=== PATIENT | female | born 1940 | race Caucasian/White ===

== ENCOUNTER 2016-07-17 14:29 | Outpatient (CLI) | payer MEDICARE, OTHER | END 2016-07-17 14:30 | disposition home or self-care (01) | DX: N30.00 Acute cystitis without hematuria (principal) ==

== ENCOUNTER 2016-08-07 13:55 | Outpatient (CLI) | payer MEDICARE, OTHER | END 2016-08-07 13:56 | disposition home or self-care (01) | DX: Z12.31 Encounter for screening mammogram for malignant neoplasm of breast (principal) ==

== ENCOUNTER 2016-08-07 14:09 | Outpatient (CLI) | payer MEDICARE, OTHER | END 2016-08-07 14:10 | disposition home or self-care (01) | DX: N30.00 Acute cystitis without hematuria (principal) ==

== ENCOUNTER 2016-08-25 08:00 | Outpatient (CLI) | payer MEDICARE, OTHER | END 2016-08-25 08:01 | DX: N30.00 Acute cystitis without hematuria (principal) ==

== ENCOUNTER 2017-01-12 09:41 | Outpatient (CLI) | payer MEDICARE, OTHER ==
--- NOTE | 2017-01-12 13:58 | MRI Report ---
EXAM: MRI CERVICAL SPINE WITHOUT CONTRAST EXAM DATE: 01/12/2017 11:06 AM. CLINICAL HISTORY: CERVICALGIA, RADICULOPATHY, CERVICAL REGION. COMPARISONS: None. TECHNIQUE: Multiplanar, multisequence T1-weighted and fluid-sensitive sequences of the cervical spine without contrast. Other: None. FINDINGS: Neurologic Structures: The visualized posterior fossa structures are unremarkable. No signal abnormal ity in the visualized spinal cord. Alignment: There is straightening of the normal cervical lordosis. There is a 2 mm anterior subluxati on of C3 on C4, C7 on T1, T1 and T2, and T2 on T3. There is 3 mm anterior subluxation of C4 on C5. Th ere is 2-3 mm of posterior subluxation of C5 on C6. Bone Marrow: Mild endplate degenerative changes with jvlo-zi-tslvgjiv loss of disk height and disk de siccation. No acute fracture. No abnormal marrow replacing lesion. No definite abnormal marrow edema. Interspace Levels/Facets: C1-C2: Mild arthritic changes with small posterior pannus without significant spinal canal stenosis o r neural foraminal narrowing. C2-C3: Slight posterior disk osteophyte complex with slight effacement of the ventral thecal sac. Rig ht arthritic facet disease with minimal right neural foraminal narrowing. C3-C4: Small posterior disk osteophyte complex with slight effacement of the ventral thecal sac. Bila teral uncovertebral osteophyte and arthritic facet disease with mild right and ngia-bq-bvnatbaw left neural foraminal narrowing. C4-C5: Small posterior disk osteophyte complex producing mild spinal canal stenosis. Bilateral uncove rtebral osteophyte and arthritic facet disease with severe bilateral neural foraminal narrowing. C5-C6: Small to moderate posterior disk osteophyte complex as well as ligamentum flavum thickening pr oducing moderate spinal canal stenosis. Bilateral uncovertebral osteophyte and arthritic facet diseas e producing severe bilateral neural foraminal narrowing. C6-C7: Small posterior disk osteophyte complex producing mild spinal canal stenosis. Bilateral uncove rtebral osteophyte and arthritic facet disease with moderate right and severe left neural foraminal n arrowing. C7-T1: Uncovering of the endplate as well as at 30 changes in ligament flavum thickening producing mi ld to moderate spinal canal stenosis. Bilateral arthritic facet disease resulting in moderate bilater al neural foraminal narrowing. Musculature: Normal. No edema or fatty atrophy. Other: The paravertebral and prevertebral soft tissues are normal. IMPRESSION: 1. Straightening of the normal cervical lordosis. 2. There is 3 mm of anterior subluxation of C4 on C5. 3. There is 2-3 mm of posterior subluxation of C5 on C6. 4. Mild to moderate multilevel degenerative changes. C3-C4: No significant spinal canal stenosis. Mild right and bvig-fz-qvokdghb left neural foraminal na rrowing. C4-C5: Mild spinal canal stenosis. Severe bilateral neural foraminal narrowing. C5-C6: Moderate spinal canal stenosis. Severe bilateral neural foraminal narrowing. C6-C7: Mild spinal canal stenosis. Moderate right and severe left neural foraminal narrowing. C7-T1: Mild to moderate spinal canal stenosis. Moderate bilateral neural foraminal narrowing. [facility] Referring Provider Line: [phone] SITE ID: [id number]
== END 2017-01-12 09:42 | disposition home or self-care (01) ==
LOC: DI 09:41
PROVIDERS: ATTEND Physician Assistant Medical
DX: M47.892 Other spondylosis, cervical region (principal); M50.30 Other cervical disc degeneration, unspecified cervical region; M43.12 Spondylolisthesis, cervical region
CPT/HCPCS: 72141

== ENCOUNTER 2017-05-28 09:15 | Outpatient (CLI) | payer MEDICARE, OTHER ==
[2017-05-28 13:37] LABS: BASOPHILS # (AUTO) 0.1 10^3/uL (0.0-0.1); BASOPHILS % (AUTO) 1.5 %; EOSINOPHILS # (AUTO) 0.3 10^3/uL (0.0-0.7); EOSINOPHILS % (AUTO) 6.7 %; HCT - HEMATOCRIT 37.5 % (37.0-47.0); HGB - HEMOGLOBIN 12.6 g/dL (12.0-16.0); LYMPHOCYTES # (AUTO) 1.3 10^3/uL (1.5-3.5); LYMPHOCYTES % (AUTO) 26.2 %; MEAN CORPUSCULAR HEMOGLOBIN 30.2 pg (27.0-31.0); MEAN CORPUSCULAR HGB CONC 33.6 g/dL (32.0-36.0); MEAN PLATELET VOLUME 10.1 fL (7.9-10.8); MONOCYTES # (AUTO) 0.5 10^3/uL (0.0-1.0); MONOCYTES % (AUTO) 9.7 %; NEUTROPHILS # (AUTO) 2.7 10^3/uL (1.5-6.6); NEUTROPHILS % (AUTO) 55.9 %; NUCLEATED RED BLOOD CELLS AUTO 0.1 /100WBC; RED BLOOD COUNT 4.17 10^6/uL (4.20-5.40); RED CELL DISTRIBUTION WIDTH 12.1 % (12.0-15.0); UNCORRECTED WHITE BLOOD COUNT 4.8 x10^3/uL; WHITE BLOOD COUNT 4.8 x10^3/uL (4.8-10.8)
[2017-05-28 14:11] LABS: ALBUMIN/GLOBULIN RATIO 1.2 (1.0-2.2); BILIRUBIN,TOTAL 0.5 mg/dL (0.2-1.0); BUN - BLOOD UREA NITROGEN 28 mg/dL (6-20); CALCIUM 9.3 mg/dL (8.5-10.3); CARBON DIOXIDE - CO2 26 mmol/L (21-32); CHLORIDE 101 mmol/L (101-111); CHOL/HDL RATIO 2.9 (<4.4); CHOLESTEROL 187 mg/dL; GFR - MDRD 54 (>89); GLUCOSE 90 mg/dL (70-100); HDL CHOLESTEROL 65 mg/dL; LDL/HDL RATIO 1.5 (<4.4); POTASSIUM 4.3 mmol/L (3.5-5.0); SODIUM 136 mmol/L (135-145); TOTAL PROTEIN 7.8 g/dL (6.7-8.2); TRIGLYCERIDES 130 mg/dL; VLDL CHOLESTEROL 26 mg/dL
== END 2017-05-28 09:16 | disposition home or self-care (01) ==
LOC: LAB.R 09:15
PROVIDERS: ATTEND Physician Assistant Medical
DX: Z79.899 Other long term (current) drug therapy (principal); M15.9 Polyosteoarthritis, unspecified; E78.2 Mixed hyperlipidemia; I10 Essential (primary) hypertension; F41.8 Other specified anxiety disorders; E03.9 Hypothyroidism, unspecified
CPT/HCPCS: 80053; 80061; 84443; 85025

== ENCOUNTER 2017-12-16 08:00 | Outpatient (CLI) | payer MEDICARE, OTHER | END 2017-12-16 08:01 | LOC: LAB.R 08:00 | PROVIDERS: ATTEND Physician Assistant Medical | DX: N30.00 Acute cystitis without hematuria (principal) | CPT/HCPCS: 87077; 87086; 87181 ==

== ENCOUNTER 2018-01-04 14:25 | Outpatient (CLI) | payer MEDICARE, OTHER | END 2018-01-04 14:26 | disposition home or self-care (01) | LOC: LAB.R 14:25 | PROVIDERS: ATTEND Physician Assistant Medical | DX: N30.00 Acute cystitis without hematuria (principal) | CPT/HCPCS: 87077; 87086; 87181 ==

== ENCOUNTER 2018-05-31 09:12 | Outpatient (CLI) | payer MEDICARE, OTHER ==
[2018-05-31 15:43] LABS: BASOPHILS # (AUTO) 0.1 10^3/uL (0.0-0.1); BASOPHILS % (AUTO) 1.2 %; EOSINOPHILS # (AUTO) 0.1 10^3/uL (0.0-0.7); EOSINOPHILS % (AUTO) 3.4 %; HGB - HEMOGLOBIN 12.6 g/dL (12.0-16.0); LYMPHOCYTES # (AUTO) 1.2 10^3/uL (1.5-3.5); LYMPHOCYTES % (AUTO) 26.6 %; MEAN CORPUSCULAR HGB CONC 32.8 g/dL (32.0-36.0); MEAN CORPUSCULAR VOLUME 91.5 fL (81.0-99.0); MEAN PLATELET VOLUME 9.6 fL (7.9-10.8); MONOCYTES # (AUTO) 0.4 10^3/uL (0.0-1.0); MONOCYTES % (AUTO) 9.3 %; NEUTROPHILS # (AUTO) 2.6 10^3/uL (1.5-6.6); NEUTROPHILS % (AUTO) 59.5 %; PLT - PLATELET COUNT 215 10^3/uL (130-450); RED BLOOD COUNT 4.19 10^6/uL (4.20-5.40); RED CELL DISTRIBUTION WIDTH 12.4 % (12.0-15.0); WHITE BLOOD COUNT 4.4 x10^3/uL (4.8-10.8)
[2018-05-31 16:16] LABS: ALBUMIN 4.2 g/dL (3.2-5.5); ALBUMIN/GLOBULIN RATIO 1.3 (1.0-2.2); ALKALINE PHOSPHATASE 62 IU/L (42-121); ALT ALANINE AMINOTRANSFERASE 23 IU/L (10-60); AST ASPARTATE AMINOTRANSFERASE 32 IU/L (10-42); BILIRUBIN,TOTAL 0.6 mg/dL (0.2-1.0); BUN - BLOOD UREA NITROGEN 30 mg/dL (6-20); CALCIUM 9.2 mg/dL (8.5-10.3); CARBON DIOXIDE - CO2 28 mmol/L (21-32); CHLORIDE 100 mmol/L (101-111); CHOL/HDL RATIO 3.1 (<4.4); CHOLESTEROL 190 mg/dL; GFR - MDRD 54 (>89); GLUCOSE 87 mg/dL (70-100); HDL CHOLESTEROL 62 mg/dL; LDL CHOLESTEROL,CALCULATED 104 mg/dL; LDL/HDL RATIO 1.7 (<4.4); SODIUM 134 mmol/L (135-145); TOTAL PROTEIN 7.4 g/dL (6.7-8.2); VLDL CHOLESTEROL 24 mg/dL
== END 2018-05-31 23:59 | disposition home or self-care (01) ==
LOC: LAB.R 09:12
PROVIDERS: ATTEND Physician Assistant Medical
DX: Z79.899 Other long term (current) drug therapy (principal); I10 Essential (primary) hypertension; F41.8 Other specified anxiety disorders; E03.9 Hypothyroidism, unspecified; E78.2 Mixed hyperlipidemia
CPT/HCPCS: 80053; 80061; 83721; 84443; 85025

== ENCOUNTER 2018-06-14 16:00 | Outpatient (CLI) | payer MEDICARE, OTHER ==
[2018-06-15 11:06] LABS: KETONES,URINE (UA) TRACE mg/dL (NEGATIVE); LEUKOCYTE ESTERASE, URINE MODERATE (NEGATIVE); NITRITE,URINE POSITIVE (NEGATIVE); OCCULT BLOOD,URINE NEGATIVE (NEGATIVE); PH,URINE 5.5 PH (5.0-7.5); PROTEIN,URINE NEGATIVE (NEGATIVE); UROBILINOGEN,URINE 0.2 (NORMAL) E.U./dL (NORMAL)
[2018-06-15 11:07] LABS: BACTERIA,URINE Many /HPF (None Seen); BILIRUBIN,URINE NEGATIVE (NEGATIVE); CLARITY,URINE CLEAR (CLEAR); GLUCOSE, URINE (UA) NEGATIVE (NEGATIVE); RBC,URINE 0-5 /HPF (0-5); SQUAMOUS EPITHELIAL CELL,UR FEW Squamous (<= Few); YEAST,URINE PRESENT
== END 2018-06-14 23:59 | disposition home or self-care (01) ==
LOC: LAB.R 16:00
PROVIDERS: ATTEND Physician Assistant Medical
DX: N18.9 Chronic kidney disease, unspecified (principal); Z87.440 Personal history of urinary (tract) infections; N39.46 Mixed incontinence
CPT/HCPCS: 81001; 81003; 82043; 87077; 87086; 87181

== ENCOUNTER 2018-09-14 13:32 | Outpatient (CLI) | payer MEDICARE, OTHER ==
--- NOTE | 2018-09-14 16:59 | DEXA Report ---
Reason: ASYMPTOMATIC POSTMENOPAUSAL STATUS Procedure Date: 09/14/2018 Accession Number: [id number] / [id number] Procedure: DEX - Dexa Spine and/or Hip CPT Code: FULL RESULT: EXAM: Dexa Spine and/or Hip, Dexa Forearm DATE: 09/14/2018 2:26 PM CLINICAL HISTORY: ASYMPTOMATIC POSTMENOPAUSAL STATUS TECHNIQUE: Dual energy x-ray absorptiometry (DXA) was performed on a [facility]. Regions measured are the AP Spine, femoral neck, and if needed forearm. COMPARISON: None. In accordance with the International Society for Clinical Densitometry (ISCD) guidelines, data from previous exams may be reanalyzed using current recommendations and techniques. This is done to allow a more accurate basis for comparison with the current study. FINDINGS: The data for the lumbar spine is as follows: BMD (g/cm/cm) T-SCORE Z-SCORE REGION L1 1.336 1.7 3.3 L2 1.768 4.7 6.4 L3 excluded from analysis L4 1.455 2.1 3.8 TOTAL 1.536 3.1 4.7 NOTE: All evaluable vertebrae are used for classification The data for the left forearm is as follows: BMD (g/cm/cm) T-SCORE Z-SCORE REGION 1/3 0.870 -0.1 2.5 NOTE: The 33% radius of the nondominant forearm is used for classification. IMPRESSION: THE WHO CLASSIFICATION BASED ON THE INTERNATIONAL REFERENCE STANDARD IS NORMAL. THE FRACTURE RISK IS NOT INCREASED. RECOMMENDATION: Patients with diagnosis of osteoporosis or osteopenia should have regular bone mineral density assessment. For those eligible for Medicare, routine testing is allowed once every 2 years. Testing frequency can be increased for patients who have rapidly progressing disease or for those who are receiving medical therapy to restore bone mass. COMMENT: World Health Organization (WHO) definitions for osteoporosis and osteopenia: NORMAL BMD: T-score at -1.0 or higher, fracture risk is low OSTEOPENIA BMD: T-score between -1.0 and -2.5, fracture risk is increased. OSTEOPOROSIS BMD: T-score at -2.5 or lower, fracture risk is high. National Osteoporosis Foundation recommends: 1. Obtain adequate dietary calcium (at least 1200 mg per day) and vitamin D (400-800 international units per day). 2. Participate, as appropriate, in regular weightbearing and muscle-strengthening exercise. 3. Avoid tobacco use and reduce alcohol and caffeine intake. 4. For more detailed information see the website at www.NOF.org.
--- NOTE | 2018-09-14 16:59 | DEXA Report ---
Reason: ASYTOMATIC POSTMENOPAUSAL STATUS Procedure Date: 09/14/2018 Accession Number: [id number] / [id number] Procedure: DEX - Dexa Forearm CPT Code: FULL RESULT: EXAM: Dexa Spine and/or Hip, Dexa Forearm DATE: 09/14/2018 2:26 PM CLINICAL HISTORY: ASYMPTOMATIC POSTMENOPAUSAL STATUS TECHNIQUE: Dual energy x-ray absorptiometry (DXA) was performed on a [employer] [facility]. Regions measured are the AP Spine, femoral neck, and if needed forearm. COMPARISON: None. In accordance with the International Society for Clinical Densitometry (ISCD) guidelines, data from previous exams may be reanalyzed using current recommendations and techniques. This is done to allow a more accurate basis for comparison with the current study. FINDINGS: The data for the lumbar spine is as follows: BMD (g/cm/cm) T-SCORE Z-SCORE REGION L1 1.336 1.7 3.3 L2 1.768 4.7 6.4 L3 excluded from analysis L4 1.455 2.1 3.8 TOTAL 1.536 3.1 4.7 NOTE: All evaluable vertebrae are used for classification The data for the left forearm is as follows: BMD (g/cm/cm) T-SCORE Z-SCORE REGION 1/3 0.870 -0.1 2.5 NOTE: The 33% radius of the nondominant forearm is used for classification. IMPRESSION: THE WHO CLASSIFICATION BASED ON THE INTERNATIONAL REFERENCE STANDARD IS NORMAL. THE FRACTURE RISK IS NOT INCREASED. RECOMMENDATION: Patients with diagnosis of osteoporosis or osteopenia should have regular bone mineral density assessment. For those eligible for Medicare, routine testing is allowed once every 2 years. Testing frequency can be increased for patients who have rapidly progressing disease or for those who are receiving medical therapy to restore bone mass. COMMENT: World Health Organization (WHO) definitions for osteoporosis and osteopenia: NORMAL BMD: T-score at -1.0 or higher, fracture risk is low OSTEOPENIA BMD: T-score between -1.0 and -2.5, fracture risk is increased. OSTEOPOROSIS BMD: T-score at -2.5 or lower, fracture risk is high. National Osteoporosis Foundation recommends: 1. Obtain adequate dietary calcium (at least 1200 mg per day) and vitamin D (400-800 international units per day). 2. Participate, as appropriate, in regular weightbearing and muscle-strengthening exercise. 3. Avoid tobacco use and reduce alcohol and caffeine intake. 4. For more detailed information see the website at www.NOF.org.
== END 2018-09-14 13:33 | disposition home or self-care (01) ==
LOC: DI 13:32
PROVIDERS: ATTEND Family Medicine
DX: Z78.0 Asymptomatic menopausal state (principal)
CPT/HCPCS: 77080; 77081

== ENCOUNTER 2018-11-09 14:30 | Outpatient (CLI) | payer MEDICARE, OTHER | END 2018-11-09 23:59 | disposition home or self-care (01) | LOC: LAB.R 14:30 | PROVIDERS: ATTEND Physician Assistant | DX: N39.0 Urinary tract infection, site not specified (principal) | CPT/HCPCS: 81002; 87086; 87181 ==

== ENCOUNTER 2018-11-23 14:00 | Outpatient (CLI) | payer MEDICARE, OTHER | END 2018-11-23 14:01 | disposition home or self-care (01) | LOC: LAB.WCP 14:00 | PROVIDERS: ATTEND Family Medicine | DX: N39.0 Urinary tract infection, site not specified (principal) | CPT/HCPCS: 87086; 87181 ==

== ENCOUNTER 2018-12-25 14:53 | Outpatient (CLI) | payer MEDICARE, OTHER ==
--- NOTE | 2018-12-28 09:54 | Ultrasound Report ---
Reason: RAYNAUDS SYNDROME Procedure Date: 12/25/2018 Accession Number: [id number] / [id number] Procedure: US - Ankle Brachial Index CPT Code: FULL RESULT: EXAM: BILATERAL ANKLE/BRACHIAL INDEX EXAM DATE: 12/25/2018 03:37 PM. CLINICAL HISTORY: Raynaud's syndrome. Leg pain COMPARISON: None. TECHNIQUE: A blood pressure cuff and pulse volume recording Doppler ultrasound was used to evaluate the arterial pressures in the arms and ankle. 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 Biphasic Waveform. DPA: PSV 77 cm/sec. Biphasic waveform. Left Leg: PAINTER APPRENTICE: PSV 76 cm/sec. Biphasic waveform. DPA: PSV 54 cm/sec. Biphasic waveform. Brachial Artery Systolic Pressure: Right 133/71. Left 133/65. Ankle Systolic Pressure: Right 145/58. Left 143/70. Ankle/Arm Index: Right 1.09. Left 1.07. IMPRESSION: 1. Right ankle/brachial index: 1.09. 2. Left ankle/brachial index: 1.07. ANKLE/BRACHIAL INDEX REFERENCE STANDARDS 1.0-1.4: Normal 0.90-0.99: Borderline < 0.9: Abnormal [facility]
== END 2018-12-25 14:54 | disposition home or self-care (01) ==
LOC: DI 14:53
PROVIDERS: ATTEND Physician Assistant
DX: I73.00 Raynaud's syndrome without gangrene (principal)
CPT/HCPCS: 93922

== ENCOUNTER 2019-03-02 08:00 | Outpatient (CLI) | payer MEDICARE, OTHER | END 2019-03-02 23:59 | disposition home or self-care (01) | LOC: LAB.R 08:00 | PROVIDERS: ATTEND Physician Assistant | DX: N39.0 Urinary tract infection, site not specified (principal) | CPT/HCPCS: 81002; 87077; 87086; 87181 ==

== ENCOUNTER 2019-03-07 12:28 | Outpatient (CLI) | payer MEDICARE, OTHER ==
[2019-03-07 12:45] LABS: BILIRUBIN,URINE SMALL (NEGATIVE); KETONES,URINE (UA) TRACE mg/dL (NEGATIVE)
[2019-03-07 12:47] LABS: CLARITY,URINE CLOUDY (CLEAR)
[2019-03-07 14:12] LABS: RBC,URINE 0-5 /HPF (0-5); SQUAMOUS EPITHELIAL CELL,UR FEW Squamous (<= Few); WBC CLUMPS,URINE PRESENT
[2019-03-07 14:13] LABS: BACTERIA,URINE Moderate /HPF (None Seen)
== END 2019-03-07 12:29 | disposition home or self-care (01) ==
LOC: LAB 12:28
PROVIDERS: ATTEND Physician Assistant
DX: N39.0 Urinary tract infection, site not specified (principal)
CPT/HCPCS: 81001; 81003; 87077; 87086; 87181

== ENCOUNTER 2019-07-12 13:04 | Outpatient (CLI) | payer MEDICARE, OTHER ==
[2019-07-12 13:16] LABS: BASOPHILS # (AUTO) 0.1 10^3/uL (0.0-0.1); EOSINOPHILS # (AUTO) 0.2 10^3/uL (0.0-0.7); EOSINOPHILS % (AUTO) 2.9 %; HGB - HEMOGLOBIN 12.9 g/dL (12.0-16.0); LYMPHOCYTES % (AUTO) 14.1 %; MEAN CORPUSCULAR HEMOGLOBIN 30.5 pg (27.0-31.0); MEAN CORPUSCULAR VOLUME 95.3 fL (81.0-99.0); MEAN PLATELET VOLUME 10.6 fL (7.9-10.8); MONOCYTES # (AUTO) 0.7 10^3/uL (0.0-1.0); NEUTROPHILS % (AUTO) 71.9 %; PLT - PLATELET COUNT 249 10^3/uL (130-450); RED BLOOD COUNT 4.23 10^6/uL (4.20-5.40); RED CELL DISTRIBUTION WIDTH 12.7 % (12.0-15.0)
[2019-07-12 13:32] LABS: ALBUMIN 4.1 g/dL (3.2-5.5); ALBUMIN/GLOBULIN RATIO 1.1 (1.0-2.2); BILIRUBIN,TOTAL 0.3 mg/dL (0.2-1.0); CALCIUM 9.6 mg/dL (8.5-10.3); CREATININE 0.9 mg/dL (0.4-1.0)
--- NOTE | 2019-07-12 15:37 | XRAY Report ---
Reason: I10, F418, [id number], E03.9,E782, G64,LOW BACK/HIP PX Procedure Date: 07/12/2019 Accession Number: [id number] / [id number] Procedure: XR - Lumbar Spine Complete CPT Code: Final Report FULL RESULT: EXAM: LUMBOSACRAL SPINE RADIOGRAPHY EXAM DATE: 07/12/2019 02:48 PM. CLINICAL HISTORY: I10, F418, [id number], E03. 9,E782, G64, low back/hip pain. Low back pain for 1 year, worse over the last month. COMPARISONS: None. TECHNIQUE: 4 views. FINDINGS: Alignment: Marked, 50 degree, dextrorotatory scoliosis is seen centered at L3. Associated 10 mm right lateral subluxation of L4 is seen in relation to L5, an 8 mm right lateral subluxation of L2 in relation to L1. Grade 1, 8 mm, spondylolisthesis is seen at L4-L5. Bones: Five nto-lio-ouewziu lumbar vertebral bodies are present. No definite acute fracture or bone lesion. Concavity to the L4 superior endplate is seen greater to the left within the scoliotic curvature. Disks: Moderate loss of disk space height is seen at L5-S1 and L4-L5. Moderate loss of disk space height is seen within the concavity of the scoliotic curvature to the left at L3-L4 and L2-L3. Facets: Mild to moderate degenerative facet changes seen in the mid and lower lumbar spine. Sacroiliac Joints: Patchy sclerosis is seen about the SI joints. Soft Tissues: Note is made of partially visualized bilateral total hip replacement. The visualized bowel gas pattern is normal. IMPRESSION: 1. Marked, 50 degree, dextrorotatory scoliosis centered at L3-L4. 2. Spondylosis throughout the mid and lower lumbar spine as noted above. [facility]
--- NOTE | 2019-07-12 16:26 | XRAY Report ---
Reason: I10, F418, [id number], E03.9,E782, G64,LOW BACK/HIP PX Procedure Date: 07/12/2019 Accession Number: [id number] / [id number] Procedure: XR - Hips 2V BILAT CPT Code: Final Report FULL RESULT: EXAM: BILATERAL HIP RADIOGRAPHY EXAM DATE: 07/12/2019 02:50 PM. CLINICAL HISTORY: I10, F418, E56394, E03.9, E782, G64, low back/hip pain. COMPARISON: HIP W/PELVIS 2-3V RT 02/11/2016 4:27 PM. TECHNIQUE: 2 views each. FINDINGS: Bones: No acute fracture is detected. Right Hip: Interval right total hip arthroplasty with screw fixated cup in expected position and long-stem prosthesis in expected position. No dislocation. Left Hip: Redemonstration of left hip arthroplasty with screw fixated cup component in essentially unchanged configuration and redemonstration of lucent-appearing proximal femur which has not significantly changed compared to 2016. No dislocation. Soft Tissues: Normal. No soft tissue swelling. IMPRESSION: Interval right hip arthroplasty without evidence of overt failure on either side. [facility]
== END 2019-07-12 13:05 | disposition home or self-care (01) ==
LOC: LAB 13:04 → DI 13:05
PROVIDERS: ATTEND Nurse Practitioner
DX: M41.9 Scoliosis, unspecified (principal); M47.816 Spondylosis without myelopathy or radiculopathy, lumbar region; M43.16 Spondylolisthesis, lumbar region; M25.551 Pain in right hip; I10 Essential (primary) hypertension; F32.9 Major depressive disorder, single episode, unspecified; F41.9 Anxiety disorder, unspecified; E03.9 Hypothyroidism, unspecified; E78.2 Mixed hyperlipidemia; R20.0 Anesthesia of skin; R20.2 Paresthesia of skin; Z79.899 Other long term (current) drug therapy; Z96.643 Presence of artificial hip joint, bilateral
CPT/HCPCS: 36415; 72110; 73521; 80053; 82306; 82607; 84443; 85025

== ENCOUNTER 2019-07-15 11:43 | Outpatient (CLI) | payer MEDICARE, OTHER ==
[2019-07-15 12:22] LABS: CHOL/HDL RATIO 2.7 (<4.4); CHOLESTEROL 172 mg/dL; HDL CHOLESTEROL 63 mg/dL; LDL CHOLESTEROL,CALCULATED 93 mg/dL; LDL/HDL RATIO 1.5 (<4.4); VLDL CHOLESTEROL 16 mg/dL
== END 2019-07-15 11:44 | disposition home or self-care (01) ==
LOC: LAB 11:43
PROVIDERS: ATTEND Nurse Practitioner
DX: I10 Essential (primary) hypertension (principal); Z79.899 Other long term (current) drug therapy; E03.9 Hypothyroidism, unspecified; E78.2 Mixed hyperlipidemia; R20.0 Anesthesia of skin; R20.2 Paresthesia of skin; F32.9 Major depressive disorder, single episode, unspecified; F41.9 Anxiety disorder, unspecified
CPT/HCPCS: 36415; 80061; 83721

== ENCOUNTER 2019-12-23 11:32 | Emergency (ER) | payer MEDICARE, OTHER ==
[2019-12-23 11:45] VITALS: BP 149/73
--- NOTE | 2019-12-23 12:14 | ED Physician Documentation ---
PD HPI WOUND RECHECK - Stated complaint Stated Complaint: BREAST DRAIN REMOVAL - Chief complaint Chief Complaint: Wound - Histroy obtained from History obtained from: Patient - Additional information Additional information: She had a breast surgery for breast cancer a little over 2 weeks ago at the [place] [facility] and presents today requesting that her CHET drain be removed. She did not want to go all the way to [place] to do it and did not feel comfortable doing it herself. The instructions she had were that she should have it removed when daily drainage was less than 20 mL for at least 2 days in a row, she has been charting it and drainage has been less than that for actually 5 days in a row. 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 - Present Medications Home Medications: Ambulatory Orders Medication Instructions Recorded Confirmed Dextroamphetamine/Amphetamine 2 tab PO DAILY 08/05/15 08/06/15 [Adderall 20 mg Tablet] Fluoxetine HCl [Prozac] 20 mg PO Q48H 08/05/15 08/06/15 Ramipril [Altace] 10 mg PO DAILY 08/05/15 08/06/15 Simvastatin 20 mg PO DAILY 08/05/15 08/06/15 Zaleplon [Sonata] 10 mg PO QPM 08/05/15 08/06/15 estradioL [Estradiol] 1 mg PO DAILY 08/05/15 08/06/15 Levothyroxine Sodium [Levoxyl] 100 mcg PO DAILY 08/06/15 08/06/15 Cephalexin [Keflex] 250 mg PO 12/23/19 - Allergies Allergies/Adverse Reactions: Allergies Allergy/AdvReac Type Severity Reaction Status Date / Time No Known Drug Allergies Allergy Verified 12/23/19 11:45 - Social History Does the pt smoke?: No Smoking Status: Former smoker - Immunizations Immunizations are current?: No PD ED PE NORMAL - Vitals Vital signs reviewed: Yes - General General: Alert and oriented X 3, No acute distress - Derm Derm: Other (There is a CHET Drain to the inferior lateral portion of the right breast with insignificant amount of drainage in the bulb, the single stitch holding it and was clipped and it was pulled out easily.) - Neuro Neuro: Alert and oriented X 3, Normal speech Results - Vitals Vitals: Vital Signs - 24 hr 12/23/19 11:42 Heart Rate 69 Respiratory 18 Rate Blood Pressure 149/73 H O2 Saturation 99 Oxygen O2 Source Room air Departure - Departure Disposition: 01 Home, Self Care Clinical Impression: Change or removal of drains Condition: Good Record reviewed to determine appropriate education?: Yes Comments: Follow-up with your surgeon as scheduled, return for new or worsening symptoms.
== END 2019-12-23 12:27 | disposition home or self-care (01) ==
LOC: ED 11:32
DX: Z48.03 Encounter for change or removal of drains (principal); Z98.890 Other specified postprocedural states; Z85.3 Personal history of malignant neoplasm of breast; I10 Essential (primary) hypertension; Z87.891 Personal history of nicotine dependence
CPT/HCPCS: 99281

== ENCOUNTER 2020-01-31 11:21 | Day surgery (SDC) | payer MEDICARE, OTHER ==
[2020-01-31] MEDS ORDERED: LACTATED RINGERS 1,000 ML IV ONE (11:26)
--- NOTE | 2020-01-31 11:59 | ANESTHESIA ---
Pre-Anesthesia VS, & Labs - Diagnosis right breast cancer - Procedure port placement Vital Signs: Temp Pulse Resp BP Pulse Ox 36.5 C 92 20 145/72 H 96 01/31/20 11:41 01/31/20 11:41 01/31/20 11:41 01/31/20 11:41 01/31/20 11:41 Height 5 ft Weight (kg) 73 kg Body Mass Index 31.7 - NPO >8 hours - Is Patient ?: No Home Medications and Allergies Dextroamphetamine/Amphetamine [Adderall 20 mg Tablet] 2 tab PO DAILY 08/05/15 Fluoxetine HCl [Prozac] 20 mg PO Q48H 08/05/15 Ramipril [Altace] 10 mg PO DAILY 08/05/15 Simvastatin 20 mg PO DAILY 08/05/15 Zaleplon [Sonata] 10 mg PO QPM 08/05/15 estradioL [Estradiol] 1 mg PO DAILY 08/05/15 Levothyroxine Sodium [Levoxyl] 100 mcg PO DAILY 08/06/15 Acetaminophen [Tylenol 8 Hour] 1 tab PO DAILY 01/24/20 Ascorbic Acid [Vitamin C] 1 tab PO DAILY 01/24/20 Betamethasone/Propylene Glyc [Diprolene 0.05% Ointment] 1 applic TD PRN PRN 01/24/20 Biotin 1 tab PO DAILY 01/24/20 Cholecalciferol [Vitamin D3] 1 cap PO DAILY 01/24/20 Multivitamin 1 tab PO DAILY 01/24/20 Omeprazole Magnesium [Prilosec] 20 mg PO DAILY 01/24/20 Allergies/Adverse Reactions: Allergies Allergy/AdvReac Type Severity Reaction Status Date / Time No Known Drug Allergies Allergy Verified 12/23/19 11:45 Anes History & Medical History - Anesthetic History Anesthesia Complications: reports: No previous complications - Medical History Cardiovascular: reports: Hypertension Pulmonary: reports: None Gastrointestinal: reports: None Urinary: reports: Frequency Neuro: reports: None Musculoskeletal: reports: Osteoarthritis Endocrine/Autoimmune: reports: HyPOthyroidism Skin: reports: None Smoking Status: Former smoker (quit 1987) Psychosocial: reports: Other (ADHD) - Surgical History General: Colonoscopy Eyes Ears Nose Throat (EENT): Cataracts, Other Gynecologic: Hysterectomy Orthopedic: Hip replacement, Knee replacement Exam General: Alert, Oriented x3, Cooperative, No acute distress Dental: WNL Mouth Openin Fingerbreadth Neck Mobility: Normal Mallampati classification: I Thyromental Distance: greater than 6 cm Respiratory: Lungs clear, Normal breath sounds, No respiratory distress, No accessory muscle use Cardiovascular: Regular rate, Other (systolic murmur) Mental/Cognitive Status: Alert/Oriented X3, Normal for patient Plan Anesthesia Type: MAC Consent for Procedure(s) Verified and Reviewed: Yes Code Status: Attempt Resuscitation ASA classification: 3-Severe systemic disease Is this case an emergency?: No
[2020-01-31] MEDS ORDERED: ceFAZolin 1 GM VIAL IR ONE (13:26)
[2020-01-31] MEDS ORDERED: HYDROcod/ACETAM 5/325 MG TABLET PO PRN (13:51)
[2020-01-31 14:51] VITALS: BP 136/75
--- NOTE | 2020-01-31 15:14 | ANESTHESIA POST OP EVALUATION ---
Anesthesia Post Eval - Post Anesthesia Eval Vitals: Last Vital Signs Temp 37.0 C 01/31/20 14:28 Pulse 73 01/31/20 14:28 Resp 14 01/31/20 14:28 BP 136/75 H 01/31/20 14:28 Pulse Ox 100 01/31/20 14:28 CV Function Including HR & BP: positive: Stable Pain Control: positive: Satisfactory Nausea & Vomiting: positive: Negative Mental Status: positive: Baseline Respiratory Status: Airway Patent Hydration Status: Satisfactory Anesthesia Complications: positive: None
--- NOTE | 2020-01-31 15:29 | OPERATIVE REPORT ---
DATE OF SERVICE: 01/31/2020 Physician: Cam Portillo MD PREOPERATIVE DIAGNOSIS: History of right breast cancer. POSTOPERATIVE DIAGNOSES 1. History of right breast cancer. 2. Need for port catheter placement for chemotherapy. PROCEDURE PERFORMED 1. An 8-[place] left subclavian vein PowerPort placement. 2. Fluoroscopic guidance for proper positioning. SURGEON: Cam Portillo MD BINDING DYER: None. TYPE OF ANESTHESIA: Monitored anesthesia care, IV sedation, local anesthesia. COMPLICATIONS: None. SPECIMEN: None. ESTIMATED BLOOD LOSS: Less than 5 mL DRAINS: None. FINDINGS: Good PowerPort placement with tip at the junction of the atrium and the superior vena cava. The port flushed and aspirated very easily. INDICATIONS FOR PROCEDURE: The patient is an 79-year-old lady, recently diagnosed with right breast cancer with lymph node involvement. Chemotherapy and Opzz-W-Vgwnetzp placement is recommended. Risks discussed, alternatives discussed. All questions answered and consent obtained. DESCRIPTION OF PROCEDURE: The patient was properly identified, brought to the operating room and placed in supine position. Monitored anesthesia care was given. The left arm was tucked. She was prepped and draped in a sterile fashion and given preoperative antibiotics. Local anesthetic was given to the operative area. The left subclavian vein was easily accessed, first attempt. A guidewire was placed in proper position, confirmed under fluoroscopy. A 3.5 to 4 cm incision was made, left upper chest. Dissection proceeded with cautery, creating a pocket for the port. Ntuj-Q-Ssintavz tubing was then pulled between the pocket and the vein access point. The Lkti-Q-Trcazvad tubing was then easily placed down a dilator pull-away sheath. The tip of the catheter was pulled back to the desired position. Ohok-E-Oqjuwtmn tubing flushed and aspirated easily. The tubing was then cut to size and port assembled. The port was secured with 2 interrupted 5-0 Prolene sutures. Hemostasis was assured. Deep subcutaneous tissue was closed with buried interrupted 3-0 Vicryl suture. Skin was closed with buried interrupted running 4-0 Monocryl. The port was then aspirated and flushed with heparin. Dressing was applied. She tolerated the procedure very well. TD: 01/31/2020 14:14 [facility]
--- NOTE | 2020-01-31 17:56 | XRAY Report ---
Reason: INTRA-OPERATIVE PORT PLACEMENT Procedure Date: 01/31/2020 Accession Number: [id number] / [id number] Procedure: FL - OR Port-A-Cath CPT Code: Final Report FULL RESULT: PROCEDURE: OR Port-A-Cath INDICATIONS: INTRA-OPERATIVE PORT PLACEMENT TECHNIQUE: Single intraoperative spot image of the right chest was acquired. COMPARISON: None. FINDINGS: The distal aspect of Port-A-Cath catheter is visible projecting over the region of the mediastinum. There are clips in the right axillary region. IMPRESSION: Intraoperative fluoroscopy for Port-A-Cath placement. Correlate with intraoperative findings. Reviewed by: Cherelle Tinoco MD on 01/31/2020 4:55 PM [place] Approved by: Cherelle Tinoco MD on 01/31/2020 4:55 PM [place] Station ID: [id number]
== END 2020-01-31 11:22 | disposition home or self-care (01) ==
LOC: SDS 11:21
PROVIDERS: ATTEND Surgery
DX: C50.911 Malignant neoplasm of unspecified site of right female breast (principal); I10 Essential (primary) hypertension; Z87.891 Personal history of nicotine dependence
CPT/HCPCS: 36561; C1788; J7120

== ENCOUNTER 2020-04-16 10:28 | Outpatient (CLI) | payer MEDICARE, OTHER ==
[2020-04-16 19:07] LABS: BILIRUBIN,URINE NEGATIVE (NEGATIVE); GLUCOSE, URINE (UA) NEGATIVE (NEGATIVE); KETONES,URINE (UA) NEGATIVE (NEGATIVE); LEUKOCYTE ESTERASE, URINE SMALL (NEGATIVE); NITRITE,URINE NEGATIVE (NEGATIVE); OCCULT BLOOD,URINE SMALL (NEGATIVE); PROTEIN,URINE 30 mg/dL (NEGATIVE); UROBILINOGEN,URINE 0.2 (NORMAL) E.U./dL (NORMAL)
[2020-04-16 19:15] LABS: BACTERIA,URINE Moderate /HPF (None Seen); CLARITY,URINE HAZY (CLEAR); SQUAMOUS EPITHELIAL CELL,UR FEW Squamous (<= Few)
[2020-04-16 19:18] LABS: CRYSTALS,URINE 26-50 Ca Oxalate /LPF
== END 2020-04-16 23:59 | disposition home or self-care (01) ==
LOC: LAB.R 10:28
PROVIDERS: ATTEND Nurse Practitioner
DX: N39.0 Urinary tract infection, site not specified (principal)
CPT/HCPCS: 81001; 87077; 87086; 87181

== ENCOUNTER 2020-05-01 15:38 | Outpatient (CLI) | payer MEDICARE, OTHER ==
[2020-05-01 15:49] LABS: BILIRUBIN,URINE NEGATIVE (NEGATIVE); GLUCOSE, URINE (UA) NEGATIVE (NEGATIVE); KETONES,URINE (UA) NEGATIVE (NEGATIVE); LEUKOCYTE ESTERASE, URINE NEGATIVE (NEGATIVE); NITRITE,URINE NEGATIVE (NEGATIVE); OCCULT BLOOD,URINE NEGATIVE (NEGATIVE); PROTEIN,URINE TRACE mg/dL (NEGATIVE); UROBILINOGEN,URINE 0.2 (NORMAL) E.U./dL (NORMAL)
[2020-05-01 16:08] LABS: BACTERIA,URINE Rare /HPF (None Seen); CLARITY,URINE CLEAR (CLEAR); RBC,URINE None Seen /HPF (0-5); SQUAMOUS EPITHELIAL CELL,UR MOD Squamous (<= Few)
== END 2020-05-01 23:59 | disposition home or self-care (01) ==
LOC: LAB 15:38
PROVIDERS: ATTEND Nurse Practitioner
DX: N39.0 Urinary tract infection, site not specified (principal)
CPT/HCPCS: 81001; 87086

== ENCOUNTER 2020-06-02 13:00 | Outpatient (CLI) | payer MEDICARE, OTHER ==
[2020-06-02 14:45] LABS: BILIRUBIN,URINE NEGATIVE (NEGATIVE); GLUCOSE, URINE (UA) NEGATIVE (NEGATIVE); KETONES,URINE (UA) TRACE mg/dL (NEGATIVE); LEUKOCYTE ESTERASE, URINE LARGE (NEGATIVE); NITRITE,URINE NEGATIVE (NEGATIVE); OCCULT BLOOD,URINE NEGATIVE (NEGATIVE); PH,URINE 5.5 PH (5.0-7.5); PROTEIN,URINE NEGATIVE (NEGATIVE); UROBILINOGEN,URINE 0.2 (NORMAL) E.U./dL (NORMAL)
[2020-06-02 14:46] LABS: CLARITY,URINE HAZY (CLEAR)
[2020-06-02 14:52] LABS: BACTERIA,URINE Many /HPF (None Seen); MUCUS,URINE Marked Strands; RBC,URINE 0-5 /HPF (0-5); SQUAMOUS EPITHELIAL CELL,UR MANY Squamous (<= Few); WBC CLUMPS,URINE PRESENT
== END 2020-06-02 23:59 | disposition home or self-care (01) ==
LOC: LAB.R 13:00
PROVIDERS: ATTEND Physician Assistant
DX: N39.0 Urinary tract infection, site not specified (principal)
CPT/HCPCS: 81001; 87086

== ENCOUNTER 2021-01-25 08:00 | Outpatient (CLI) | payer MEDICARE ==
[2021-01-25 17:38] LABS: BASOPHILS # (AUTO) 0.1 10^3/uL (0.0-0.1); BASOPHILS % (AUTO) 0.6 %; EOSINOPHILS # (AUTO) 0.1 10^3/uL (0.0-0.7); EOSINOPHILS % (AUTO) 1.7 %; HCT - HEMATOCRIT 32.9 % (37.0-47.0); HGB - HEMOGLOBIN 10.4 g/dL (12.0-16.0); LYMPHOCYTES # (AUTO) 0.6 10^3/uL (1.5-3.5); LYMPHOCYTES % (AUTO) 7.1 %; MEAN CORPUSCULAR HEMOGLOBIN 32.4 pg (27.0-31.0); MEAN CORPUSCULAR HGB CONC 31.6 g/dL (32.0-36.0); MEAN CORPUSCULAR VOLUME 102.5 fL (81.0-99.0); MEAN PLATELET VOLUME 10.6 fL (7.9-10.8); MONOCYTES # (AUTO) 0.9 10^3/uL (0.0-1.0); MONOCYTES % (AUTO) 11.5 %; NEUTROPHILS # (AUTO) 6.2 10^3/uL (1.5-6.6); NEUTROPHILS % (AUTO) 78.6 %; PLT - PLATELET COUNT 163 10^3/uL (130-450); RED BLOOD COUNT 3.21 10^6/uL (4.20-5.40); RED CELL DISTRIBUTION WIDTH 11.5 % (12.0-15.0); WHITE BLOOD COUNT 7.8 x10^3/uL (4.8-10.8)
[2021-01-25 17:45] LABS: ALBUMIN 3.7 g/dL (3.2-5.5); ALBUMIN/GLOBULIN RATIO 1.1 (1.0-2.2); BILIRUBIN,TOTAL 0.5 mg/dL (0.2-1.0); CALCIUM 8.8 mg/dL (8.5-10.3); CREATININE 1.1 mg/dL (0.4-1.0); POTASSIUM 3.8 mmol/L (3.5-5.0)
== END 2021-01-25 23:59 | disposition home or self-care (01) ==
LOC: LAB.WCP 08:00
PROVIDERS: ATTEND Family Medicine
DX: K21.00 Gastro-esophageal reflux disease with esophagitis, without bleeding (principal)
CPT/HCPCS: 36415; 80053; 85025

== ENCOUNTER 2021-12-18 20:24 | Emergency (ER) | payer MEDICARE ==
[2021-12-18 20:43] VITALS: BP 156/74
[2021-12-18] MEDS ORDERED: valACYclovir 500 MG TABLET PO STA (21:03)
[2021-12-18] MEDS ORDERED: predniSONE 20 MG TABLET PO STA (21:04)
--- NOTE | 2021-12-18 21:09 | ED Physician Documentation ---
PD HPI SKIN - Stated complaint Stated Complaint: RASH - Chief complaint Chief Complaint: Wound - History obtained from History obtained from: Patient - Additional information Additional information: Patient is an 80-year-old female with a history of breast cancer and hypertension presenting for evaluation of a left upper facial rash that has been present for 2 days. She reports having vesicles with weepage and burning sensation to the face. She denies rash elsewhere. She does believe she had the shingles vaccine in the past. She denies fever, vision changes, eye or ear irritation, chest pain or difficulty breathing. 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 Albright at [facility]. Review of Systems Constitutional: denies: Fever Eyes: denies: Decreased vision Ears: denies: Ear pain Nose: denies: Congestion Throat: denies: Sore throat Cardiac: denies: Chest pain / pressure Respiratory: denies: Dyspnea GI: denies: Abdominal Pain Skin: reports: Rash Musculoskeletal: denies: Neck pain, Back pain Neurologic: denies: Headache PD PAST MEDICAL HISTORY - Past Medical History Past Medical History: Yes Cardiovascular: Hypertension Respiratory: None Neuro: None Endocrine/Autoimmune: HyPOthyroidism GI: None : Frequency HEENT: Chronic vision loss, Other Psych: Depression Musculoskeletal: Osteoarthritis Derm: None - Past Surgical History Past Surgical History: Yes General: Colonoscopy Ortho: Hip replacement, Knee replacement /AIDS NURSE: Hysterectomy HEENT: Cataracts, Other - Present Medications Home Medications: Ambulatory Orders Medication Instructions Recorded Confirmed Dextroamphetamine/Amphetamine 2 tab PO DAILY 08/05/15 05/06/21 [Adderall 20 mg Tablet] Fluoxetine HCl [Prozac] 20 mg PO Q48H 08/05/15 05/06/21 Ramipril [Altace] 10 mg PO DAILY 08/05/15 05/06/21 Simvastatin 20 mg PO DAILY 08/05/15 05/06/21 Zaleplon [Sonata] 10 mg PO QPM 08/05/15 05/06/21 Levothyroxine Sodium [Levoxyl] 100 mcg PO DAILY 08/06/15 05/06/21 Acetaminophen [Tylenol 8 Hour] 1 tab PO DAILY 01/24/20 05/06/21 Ascorbic Acid [Vitamin C] 1 tab PO DAILY 01/24/20 05/06/21 Betamethasone/Propylene Glyc 1 applic TD PRN PRN 01/24/20 05/06/21 [Diprolene 0.05% Ointment] Biotin 1 tab PO DAILY 01/24/20 05/06/21 Cholecalciferol [Vitamin D3] 1 cap PO DAILY 01/24/20 05/06/21 Multivitamin 1 tab PO DAILY 01/24/20 05/06/21 Omeprazole Magnesium [Prilosec] 20 mg PO DAILY 01/24/20 05/06/21 Oxycodone HCl/Acetaminophen 1 each PO Q6H PRN #14 tablet 12/18/21 [Percocet 5-325 mg Tablet] Valacyclovir HCl [Valtrex] 1,000 mg PO TID 7 Days #21 tablet 12/18/21 predniSONE [Deltasone] 20 mg PO [id number] #21 tab 12/18/21 - Allergies Allergies/Adverse Reactions: Allergies Allergy/AdvReac Type Severity Reaction Status Date / Time No Known Drug Allergies Allergy Verified 12/18/21 20:43 - Social History Does the pt smoke?: No Smoking Status: Never smoker - Immunizations Immunizations are current?: No PD ED PE NORMAL - General General: Alert and oriented X 3, No acute distress, Well developed/nourished - HEENT HEENT: Atraumatic, PERRL, EOMI, Ears normal (No rash or vesicles seen in Bilateral auditory canals,), Other (No fluorescein uptake to left eye, No rash to nose) - Neck Neck: Supple, no meningeal sign - Cardiac Cardiac: RRR, No murmur, Strong equal pulses - Respiratory Respiratory: No respiratory distress - Derm Derm: Warm and dry, Other (Vesicular rash to left upper forehead) - Neuro Neuro: Alert and oriented X 3, No motor deficit, Normal speech - Psych Psych: Normal mood PD ED PE EXPANDED - Eyes Eyes: Normal corneas. No: Fluorescein uptake Results - Vitals Vitals: Vital Signs - 24 hr 12/18/21 20:37 Temperature 36.9 C Heart Rate 94 Respiratory 14 Rate Blood Pressure 156/74 H O2 Saturation 96 Oxygen O2 Source Room air PD MEDICAL DECISION MAKING - ED course Complexity details: d/w patient ED course: Patient evaluated for facial rash. Rashes consistent with shingles. No ocular lesions seen. Patient is alert and oriented with no abnormal neurologic findings. We will start patient on acyclovir and prednisone. Also prescribed pain medication to use as needed. Patient counseled on need for close follow-up with her faculty support coordinator as well as primary care doctor. Departure - Departure Disposition: 01 Home, Self Care Clinical Impression: Shingles Qualifiers: Herpes zoster complications: without complications Qualified Code(s): B02.9 - Zoster without complications Condition: Stable Instructions: ED Shingles Prescriptions: predniSONE [Deltasone] 20 mg PO [id number] #21 tab Oxycodone HCl/Acetaminophen [Percocet 5-325 mg Tablet] 1 each PO Q6H PRN #14 tablet PRN Reason: pain Valacyclovir HCl [Valtrex] 1,000 mg PO TID 7 Days #21 tablet Comments: You were evaluated for a rash to your face that is consistent with shingles. At this time, I did notFind any evidence of the spread of the virus into your eye but it is near your eye and you need very close follow-up with your faculty support coordinator. Please call your faculty support coordinator tomorrow for a close follow- up appointment. Please also reach out to your primary care doctor for close follow-up. I have sent prescriptions that will help with the rash to the community pharmacy here in [place].There is also a prescription for narcotic pain medication. If you notice any worsening, have a fever or other concerns please return to the emergency department. I am prescribing a short course of narcotic pain medication for you. These are potentially dangerous and addictive medications that should be used carefully. These medications may constipate you. Take an rpcn-xsx-baavtxk stool softener (docusate) twice daily with plenty of water while taking these medications. If you go 24 hours without a bowel movement, take eskt-[id number]-[id number] miralax, per package instructions. Do not drink or drive while taking these medications. If you received narcotic or sedating medications while in the emergency department, do not drive for 24 hours. Store this medication in a safe, secure place and out of reach of children. It is a violation of federal law to give or sell this medication to another person or to use in a manner other than prescribed. The ED will not refill narcotic prescriptions, including prescriptions lost or stolen. To dispose of unwanted medications: 1. [facility] at [address] in [place] has a medication drop box. They accept prescription medications (in pill form) Thursday through Thursday 9:00 a.m. to 5:00 p.m. 2. [facility] accepts prescription medications (in pill form only) for disposal year round. Call for more information. 3. Contact the [facility] for the next [facility] sponsored prescription benny g collection event. , [phone], or [phone]; Note that many narcotic pain relievers also contain Tylenol/acetaminophen. Please ensure that your total dose of acetaminophen from all sources does not exceed 3 g (3000 mg) per day. Discharge Date/Time: 12/18/21 21:25
== END 2021-12-18 21:25 | disposition home or self-care (01) ==
LOC: ED 20:24
DX: B02.9 Zoster without complications (principal); I10 Essential (primary) hypertension
CPT/HCPCS: 99283; 99284; A9270; J7512

== ENCOUNTER 2023-06-30 15:30 | Outpatient (CLI) | payer MEDICARE ==
[2023-06-30 15:53] LABS: BASOPHILS # (AUTO) 0.1 10^3/uL (0.0-0.1); BASOPHILS % (AUTO) 0.9 %; EOSINOPHILS # (AUTO) 0.4 10^3/uL (0.0-0.7); EOSINOPHILS % (AUTO) 5.7 %; HCT - HEMATOCRIT 41.3 % (37.0-47.0); HGB - HEMOGLOBIN 12.9 g/dL (12.0-16.0); LYMPHOCYTES % (AUTO) 15.5 %; MEAN CORPUSCULAR HEMOGLOBIN 29.9 pg (27.0-31.0); MEAN CORPUSCULAR HGB CONC 31.2 g/dL (32.0-36.0); MEAN CORPUSCULAR VOLUME 95.8 fL (81.0-99.0); MEAN PLATELET VOLUME 9.7 fL (7.9-10.8); MONOCYTES # (AUTO) 0.8 10^3/uL (0.0-1.0); MONOCYTES % (AUTO) 12.1 %; NEUTROPHILS # (AUTO) 4.2 10^3/uL (1.5-6.6); NEUTROPHILS % (AUTO) 65.5 %; PLT - PLATELET COUNT 263 10^3/uL (130-450); RED BLOOD COUNT 4.31 10^6/uL (4.20-5.40); RED CELL DISTRIBUTION WIDTH 12.5 % (12.0-15.0); WHITE BLOOD COUNT 6.5 x10^3/uL (4.8-10.8)
[2023-06-30 16:05] LABS: ALBUMIN 4.4 g/dL (3.2-5.5); ALBUMIN/GLOBULIN RATIO 1.3 (1.0-2.2); ALKALINE PHOSPHATASE 97 IU/L (42-121); ALT ALANINE AMINOTRANSFERASE 35 IU/L (10-60); AST ASPARTATE AMINOTRANSFERASE 30 IU/L (10-42); BILIRUBIN,TOTAL 0.3 mg/dL (0.2-1.0); BUN - BLOOD UREA NITROGEN 43 mg/dL (6-20); CALCIUM 10.2 mg/dL (8.5-10.3); CARBON DIOXIDE - CO2 28 mmol/L (21-32); CHLORIDE 104 mmol/L (101-111); CHOL/HDL RATIO 3.5 (<4.4); CHOLESTEROL 189 mg/dL; CREATININE 1.3 mg/dL (0.6-1.3); GFR - MDRD 39 (>89); GLUCOSE 101 mg/dL (74-104); HDL CHOLESTEROL 54 mg/dL; LDL CHOLESTEROL,CALCULATED 95 mg/dL; LDL/HDL RATIO 1.8 (<4.4); POTASSIUM 4.3 mmol/L (3.5-4.5); SODIUM 139 mmol/L (135-145); TOTAL PROTEIN 7.9 g/dL (6.4-8.9); TRIGLYCERIDES 199 mg/dL (48-352); VLDL CHOLESTEROL 40 mg/dL
[2023-06-30 21:19] LABS: ESTIMATED AVERAGE GLUCOSE 117 mg/dL (70-100); HEMOGLOBIN A1c% 5.7 % (4.27-6.07)
== END 2023-06-30 15:31 | disposition home or self-care (01) ==
LOC: LAB 15:30
PROVIDERS: ATTEND Family Medicine
DX: I10 Essential (primary) hypertension (principal); G47.9 Sleep disorder, unspecified; F90.9 Attention-deficit hyperactivity disorder, unspecified type; E87.5 Hyperkalemia; K21.00 Gastro-esophageal reflux disease with esophagitis, without bleeding; M43.10 Spondylolisthesis, site unspecified; D64.9 Anemia, unspecified; E03.9 Hypothyroidism, unspecified; E78.2 Mixed hyperlipidemia; Z79.890 Hormone replacement therapy; E55.9 Vitamin D deficiency, unspecified
CPT/HCPCS: 36415; 80053; 80061; 82306; 83036; 83721; 84439; 84443; 84481; 85025

== ENCOUNTER 2023-08-10 13:50 | Emergency (ER) | payer MEDICARE ==
[2023-08-10 14:21] VITALS: O2SAT 98
--- NOTE | 2023-08-10 14:27 | ED Physician Documentation ---
PD HPI LOWER EXT INJURY - Stated complaint Stated Complaint: GLF - Chief complaint Chief Complaint: Trauma Ext - History obtained from History obtained from: Patient - Additional information Additional information: 82-year-old woman with history of hypertension and has had both knees and hips replaced has had 2 recent ground-level falls. She states both of more instigated after turning around too fast and then she lost her balance and went down. She did have a head strike but no loss of consciousness, no headache. She is able to walk and bear weight. PD PAST MEDICAL HISTORY - Past Medical History Past Medical History: Yes Cardiovascular: Hypertension, High cholesterol Respiratory: None Neuro: None, Tremors Endocrine/Autoimmune: HyPOthyroidism GI: None : Incontinence, Frequency HEENT: Chronic vision loss, Other Psych: Depression Musculoskeletal: Osteoarthritis Derm: None - Past Surgical History Past Surgical History: Yes General: Colonoscopy Ortho: Hip replacement, Knee replacement /[employer]: Hysterectomy HEENT: Cataracts, Other - Present Medications Home Medications: Ambulatory Orders Medication Instructions Recorded Confirmed Dextroamphetamine/Amphetamine 2 tab PO DAILY 08/05/15 08/03/23 [Adderall 20 mg Tablet] Fluoxetine HCl [Prozac] 20 mg PO Q48H 08/05/15 08/03/23 Ramipril [Altace] 10 mg PO DAILY 08/05/15 08/03/23 Simvastatin 20 mg PO DAILY 08/05/15 08/03/23 Zaleplon [Sonata] 10 mg PO QPM 08/05/15 08/03/23 Levothyroxine Sodium [Levoxyl] 100 mcg PO DAILY 08/06/15 08/03/23 Acetaminophen [Tylenol 8 Hour] 1 tab PO DAILY 01/24/20 08/03/23 Ascorbic Acid [Vitamin C] 1 tab PO DAILY 01/24/20 08/03/23 Betamethasone/Propylene Glyc 1 applic TD PRN PRN 01/24/20 08/03/23 [Diprolene 0.05% Ointment] Biotin 1 tab PO DAILY 01/24/20 08/03/23 Cholecalciferol [Vitamin D3] 1 cap PO DAILY 01/24/20 08/03/23 Multivitamin 1 tab PO DAILY 01/24/20 08/03/23 Omeprazole Magnesium [Prilosec] 20 mg PO DAILY 01/24/20 08/03/23 - Allergies Allergies/Adverse Reactions: Allergies Allergy/AdvReac Type Severity Reaction Status Date / Time No Known Drug Allergies Allergy Verified 08/10/23 14:04 - Social History Does the pt smoke?: No Smoking Status: Never smoker Does the pt drink ETOH?: Yes Does the pt have substance abuse?: No - Immunizations Immunizations are current?: Yes PD ED PE NORMAL - Vitals Vital signs reviewed: Yes - General General: Alert and oriented X 3, No acute distress - HEENT HEENT: Ears normal, Other (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 Mild tenderness over the lateral right hip but painless range of motion. Both knees and left hip nontender with full range of motion.) - Neuro Neuro: Alert and oriented X 3, Normal speech Results - Vitals Vitals: Vital Signs - 24 hr 08/10/23 14:04 Temperature 36 C L Heart Rate 101 H Respiratory 16 Rate Blood Pressure 111/59 L O2 Saturation 98 Oxygen O2 Source Room air - Rads (name of study) R Hip XR-NAD Relevant Findings:: Final report received, EMP independent interpretation of test Departure - Departure Disposition: 01 Home, Self Care Clinical Impression: Fall Qualifiers: Encounter type: initial encounter Qualified Code(s): W19.XXXA - Unspecified fall, initial encounter Contusion of right hip Qualifiers: Encounter type: initial encounter Qualified Code(s): S70.01XA - Contusion of right hip, initial encounter Condition: Good Record reviewed to determine appropriate education?: Yes Instructions: ED Contusion Hip Comments: X-rays of the right hip were without signs of acute injury. Clinically I do not see anything else of concern on your exam. Tylenol as needed for pain, and as discussed, try to minimize NSAIDs given your chronic kidney disease. Return for new or worsening symptoms. Follow-up with your doctor in about a week for recheck, also consideration for neurology referral given increasing frequency of falls. Forms: PCP List
--- NOTE | 2023-08-10 15:06 | XRAY Report ---
PROCEDURE: Hip w/Pelvis 2-3V RT INDICATIONS: hip inj TECHNIQUE: 3 views of the hip were acquired. COMPARISON: None. FINDINGS: Bones: No fractures or dislocations. No suspicious bony lesions. Right total hip arthroplasty, wi thout hardware complication. Partially visualized left total hip arthroplasty. Soft tissues: No suspicious soft tissue calcifications or masses. IMPRESSION: No acute bony abnormality. If there remains a high clinical concern for fracture, including inability to bear weight, consider cross-sectional imaging to exclude an occult fracture. Reviewed by: Kelvin Ross MD on 08/10/2023 3:05 PM PST Approved by: Kelvin Ross MD on 08/10/2023 3:05 PM PST Station ID: [id number]
[2023-08-10 15:40] VITALS: BP 122/86
== END 2023-08-10 15:32 | disposition home or self-care (01) ==
LOC: ED 13:50
DX: S70.01XA Contusion of right hip, initial encounter (principal); W18.39XA Other fall on same level, initial encounter; I10 Essential (primary) hypertension; E78.00 Pure hypercholesterolemia, unspecified; E03.9 Hypothyroidism, unspecified; Z96.643 Presence of artificial hip joint, bilateral; Z96.653 Presence of artificial knee joint, bilateral; Z79.899 Other long term (current) drug therapy
CPT/HCPCS: 99283

== ENCOUNTER 2023-09-23 09:24 | Day surgery (SDC) | payer MEDICARE ==
[2023-09-23] MEDS: LACTATED RINGERS 1,000 ML IV ONE ×2 (10:09→11:30)
--- NOTE | 2023-09-23 10:25 | ANESTHESIA ---
Pre-Anesthesia VS, & Labs - Diagnosis Screening/hemorrhoid - Procedure colonoscopy/banding Vital Signs: Temp Pulse Resp BP Pulse Ox O2 Flow Rate 36.5 C 97 13 122/65 99 09/23/23 09:47 09/23/23 09:47 09/23/23 09:47 09/23/23 09:47 09/23/23 09:47 Height: 4 ft 11 in Weight (kg): 66 kg Body Mass Index: 29.3 BMI Classification: Overweight - NPO Last Fluid Intake: sip this am Last Food Intake: 2099 - Is Patient ?: No Home Medications and Allergies Home Medications: Ambulatory Orders Calcium Carb/Mag Ox/Zinc Sulf [Ypv-Xlt-Fuye 334-134-5 mg Tab] 1 each PO DAILY 09/16/23 Cyclosporine [Restasis Multidose] 1 drops EACHEYE BID 09/16/23 Ibuprofen [Motrin] 400 mg PO BID 09/16/23 [place]-3S/Dha/Epa/Fish Oil [Fish Oil 1,200 mg Softgel] 1 each PO DAILY 09/16/23 cephALEXin [Keflex] 250 mg PO DAILY 09/16/23 Dextroamphetamine/Amphetamine [Adderall 20 mg Tablet] 1 tab PO BID 08/05/15 Fluoxetine HCl [Prozac] 20 mg PO QPM 08/05/15 Ramipril [Altace] 10 mg PO DAILY 08/05/15 Simvastatin 20 mg PO QPM 08/05/15 Zaleplon [Sonata] 10 mg PO QPM 08/05/15 Levothyroxine Sodium [Levoxyl] 100 mcg PO DAILY 08/06/15 Acetaminophen [Tylenol 8 Hour] 1 tab PO BID 01/24/20 Ascorbic Acid [Vitamin C] 1 tab PO DAILY 01/24/20 Biotin 1 tab PO DAILY 01/24/20 Cholecalciferol [Vitamin D3] 1 cap PO DAILY 01/24/20 Multivitamin 1 tab PO DAILY 01/24/20 Omeprazole Magnesium [Prilosec] 20 mg PO DAILY 01/24/20 Calcium Carb/Mag Ox/Zinc Sulf [Gyg-Ypt-Yajh 334-134-5 mg Tab] 1 each PO DAILY 09/16/23 Cyclosporine [Restasis Multidose] 1 drops EACHEYE BID 09/16/23 Ibuprofen [Motrin] 400 mg PO BID 09/16/23 [place]-3S/Dha/Epa/Fish Oil [Fish Oil 1,200 mg Softgel] 1 each PO DAILY 09/16/23 cephALEXin [Keflex] 250 mg PO DAILY 09/16/23 Allergies/Adverse Reactions: Allergies Allergy/AdvReac Type Severity Reaction Status Date / Time Sulfa (Sulfonamide Allergy Unknown Verified 09/23/23 09:49 Antibiotics) bupropion [From Wellbutrin] AdvReac Nausea Verified 09/23/23 10:07 Anes History & Medical History - Anesthetic History Anesthesia Complications: reports: No previous complications Family history of Anesthesia Complications: Denies - Medical History Cardiovascular: reports: Hypertension (denies cp, hx mi), High cholesterol Pulmonary: reports: Shortness of breath (deconditioned) Gastrointestinal: reports: GERD (denies need to sleep elevated to avoid reflux), Hemorrhoids Urinary: reports: Incontinence, Chronic bladder infection, Frequency Neuro: reports: None, Tremors Musculoskeletal: reports: Osteoarthritis, Scoliosis, Chronic back pain Endocrine/Autoimmune: reports: HyPOthyroidism Blood Disorders: reports: None Skin: reports: None Smoking Status: Never smoker Psychosocial: reports: No issues indicated - Surgical History General: reports: Colonoscopy Eyes Ears Nose Throat (EENT): reports: Cataracts, Other Gynecologic: reports: Hysterectomy Orthopedic: reports: Hip replacement, Knee replacement Exam General: Alert Dental: WNL Mouth Openin Fingerbreadth Neck Mobility: Reduced Mallampati classification: II Thyromental Distance: 4-6 cm Plan Anesthesia Type: Total IV Consent for Procedure(s) Verified and Reviewed: Yes Code Status: Attempt Resuscitation ASA classification: 2-Mild systemic disease Is this case an emergency?: No
[2023-09-23] MEDS ORDERED: PROPOFOL 500 MG/50 ML 500 MG/50 ML VIAL ONE (10:31)
[2023-09-23] MEDS ORDERED: LIDOCAINE-MPF 2% 5 ML VIAL ONE (10:31)
[2023-09-23] MEDS ORDERED: ePHEDrine 50 MG/ML VIAL IVP ONE (10:58)
[2023-09-23 12:14] VITALS: BP 118/66; O2SAT 98
--- NOTE | 2023-09-23 12:15 | ANESTHESIA POST OP EVALUATION ---
Anesthesia Post Eval - Post Anesthesia Eval Vitals: Last Vital Signs Temp 36.7 C 09/23/23 11:31 Pulse 73 09/23/23 12:01 Resp 13 09/23/23 12:01 BP 118/66 09/23/23 12:01 Pulse Ox 98 09/23/23 12:01 O2 Flow Rate CV Function Including HR & BP: Stable Pain Control: Satisfactory Nausea & Vomiting: Negative Mental Status: Baseline Respiratory Status: Airway Patent Hydration Status: Satisfactory Anesthesia Complications: None
== END 2023-09-23 09:25 | disposition home or self-care (01) ==
LOC: SDS 09:24
PROVIDERS: ATTEND Surgery
PROC: 0DBN8ZZ Excision of Sigmoid Colon, Via Natural or Artificial Opening Endoscopic (ICD-10-PCS; 2023-09-23)
PROC: 06LY7CC Occlusion of Hemorrhoidal Plexus with Extraluminal Device, Via Natural or Artificial Opening (ICD-10-PCS; 2023-09-23)
PROC: 0DBH8ZX Excision of Cecum, Via Natural or Artificial Opening Endoscopic, Diagnostic (ICD-10-PCS; principal; 2023-09-23 11:00)
DX: R15.9 Full incontinence of feces (principal); K62.5 Hemorrhage of anus and rectum; K64.2 Third degree hemorrhoids; R19.4 Change in bowel habit; K52.9 Noninfective gastroenteritis and colitis, unspecified; D12.0 Benign neoplasm of cecum; D12.5 Benign neoplasm of sigmoid colon; I10 Essential (primary) hypertension; K57.30 Diverticulosis of large intestine without perforation or abscess without bleeding
CPT/HCPCS: 45380; 45385; 46221; J7120